=== PATIENT | male | born 1950 | race Caucasian/White ===

== ENCOUNTER → 2017-07-07 | Day surgery (SDC) | payer OTHER ==
[~2017-07-07] MED LIST: BUPIVACAINE/EPINEPHRINE 0.25% 50 ML VIAL ONE; KETOROLAC TROMETHAMINE 30 MG/ML (IVP) VIAL IV PUSH ONE; LACTATED RINGER'S 1000 ML INJ 1,000 ML ONE; MIDAZOLAM HCL 2 MG/2 ML VIAL ONE; ONDANSETRON HCL 4 MG/2 ML VIAL IV PUSH ONE; PROPOFOL 200 MG/20 ML AMP IV ONE; ceFAZolin 2 GM PREMIX 50 ML ONE
--- NOTE | 2017-07-07 09:53 | TN ---
cc: NESTOR CHACON M.D. DATE OF SURGERY 07/07/2017 PREOPERATIVE DIAGNOSIS Incarcerated left inguinal hernia. POSTOPERATIVE DIAGNOSIS Incarcerated left inguinal hernia, indirect and direct PROCEDURE Open repair incarcerated left inguinal hernia with mesh. SURGEON Dr. Nestor Chacon [employer] [place] ANESTHESIA General with a laryngeal mask INDICATIONS This is a pleasant 66-year-old gentleman who has an interesting history of an Arrow injury to his bladder who has had a left inguinal hernias since lifting a heavy suitcase. The hernia used to be reducible, but now it is not. It creates discomfort when he tries to ride his bicycle or be on his feet all day or walking long distances. Plans were made for operative repair. INTRAOPERATIVE FINDINGS Consistent with a chronic long-term incarcerated indirect inguinal hernia. ESTIMATED BLOOD LOSS Less than 5 mL DESCRIPTION OF PROCEDURE IN DETAIL The patient was identified as Daniel Mendieta, taken to the operating room, placed in the supine position. Sequential compression devices were placed on the bilateral lower extremities. Following induction of adequate general anesthesia, the patient's left groin was prepped and draped in the usual sterile fashion with Betadine. A time-out procedure was performed. Following completion time-out procedure to everyone's satisfaction within the room, proposed left groin incision was made with a marking pen and infiltrated with a local anesthetic. Incision carried out with a scalpel. Hemostasis was controlled with electrocautery. Dissection continued posteriorly through Florence's fascia to the level of the external oblique fascia. More local anesthetic was placed beneath the external oblique fascial fibers. They were opened in their direction and an ilioinguinal and iliohypogastric nerve branches were identified and avoided. A very large spermatic cord including an indirect inguinal hernia sac was from surrounding chronic inflammatory tissues. Using a combination of blunt dissection and scissors and electrocautery, the spermatic cord and the left testicle were mobilized up into the wound in order to facilitate dissecting the indirect inguinal hernia sac off of the spermatic cord back to the level of the internal inguinal ring. The sac basically contained incarcerated contents of intestine and this was therefore mobilized more in order to be able to be reduced primarily. I did not opened the sac. The inguinal floor was weak. Calvin's ligament, the shelving edge of the inguinal ligament and the internal oblique fascia was identified. A 3 x 6 inches piece of [employer]rium ProLite mesh was modified slightly in size and shape for the patient's individual anatomy and sutured in position to reinforce the inguinal floor to cover the internal inguinal ring. The mesh was sutured with interrupted 0-Ethibond sutures placed above and below the pubic tubercle into Calvin's ligament and the shelving edge of the inguinal ligament inferiorly and laterally, into the internal oblique fascia superiorly and medially. Care was taken to avoid the iliohypogastric and ilioinguinal nerve branches. The lateral tails of the mesh, which were cut to allow for passage of the spermatic cord, were then tucked beneath the external oblique fascia laterally and a suture was used to reapproximate the mesh lateral to the spermatic cord. The testicle and spermatic cord were returned to their normal anatomic position down the inguinal canal into the scrotum. The wound was irrigated copiously with saline. There was no evidence of bleeding. More local anesthetic was placed into the operative field. The external oblique fascia was closed with running 2-0 Vicryl suture, again taking care to avoid the identified nerve branches. The 3-0 Vicryl was placed into Florence's fascia, the skin was approximated with running 4-0 Monocryl subcuticular sutures. Dressings were applied with Mastisol, inch brown Steri-Strips, gauze and Tegaderm. The patient tolerated the procedure without apparent complication. Sponge, needle and instrument counts were correct at the end of the case. MD SCOTT Owusu/MICHELLE /9:28 AM /9:40 AM
== END | disposition home or self-care (01) ==
LOC: ESDC 06:51
PROVIDERS: ATTEND Surgery Trauma Surgery
DX: K40.30 Unilateral inguinal hernia, with obstruction, without gangrene, not specified as recurrent (principal)
CPT/HCPCS: 00830; 49507; C1781; J0690; J1885; J2250; J2405; J3010; J7120